=== PATIENT | male | born 1960 | race Caucasian/White ===

== ENCOUNTER 2023-04-16 17:16 | Emergency (ER) | payer BC, SELFPAY ==
--- NOTE | 2023-04-16 17:24 | DI.RAD.S_ITS ---
PROCEDURE: XR ANKLE RT MIN 3V INDICATIONS: inversion injury today TECHNIQUE: 3 views of the ankle were acquired. COMPARISON: None. FINDINGS: Bones: There is an avulsion fracture fragment seen along the inferior aspect of the lateral malleolus, with an acute appearance. Focal irregularity is seen involving the inferior aspect of the medial malleolus, with a chronic appearance. The talar dome demonstrates no margot abnormality. A moderate to prominent plantar calcaneal spur can be seen. Incidental note is made of an enthesophyte at the Achilles insertion. Soft tissues: Soft tissue swelling is seen, primarily laterally. IMPRESSION: Lateral malleolus avulsion fracture fragment, with focal lateral soft tissue swelling. Dictated by: Tomas Espinoza M.D. on 04/16/2023 at 16:52 Approved by: Tomas Espinoza M.D. on 04/16/2023 at 16:53
--- NOTE | 2023-04-16 17:25 | ED_ITS ---
HPI - General Adult General Chief complaint: Extremity Injury, Lower Stated complaint: Twisted rt ankle Time Seen by Provider: 04/16/23 17:18 History of Present Illness HPI narrative: 62-year-old male without chronic medical history presents with his in the chief complaint of right ankle pain. He states that he was out hiking and just before they got back to the parking lot he stepped awkwardly on an uneven piece of ground and inverted his right ankle and now has pain overlying the lateral part of his ankle. He states the pain is worse when he walks and improves with rest. He denies any numbness or tingling. He states he is had prior sprains before. He denies any knee or hip injury. Related Data Allergies Allergy/AdvReac Type Severity Reaction Status Date / Time No Known Drug Allergies Allergy Verified 04/16/23 17:28 Review of Systems Review of Systems Narrative: GENERAL: Denies chills, fatigue, malaise, fever, sweats. HEENT: Denies sinus pain, ear pain, sore throat, difficulty swallowing, dizziness. RESPIRATORY: Denies dyspnea, cough, wheezing, hemoptysis, sputum. CARDIOVASCULAR: Denies chest pain, palpitations, orthopnea, edema, GASTROINTESTINAL: Denies nausea, vomiting, abdominal pain, diarrhea, constipation, melena. : Denies dysuria, frequency, incontinence, hematuria, urinary retention. MUSCULOSKELETAL: See HPI SKIN: Denies rash, skin lesions, or other NEUROLOGIC: Denies weakness, headache, numbness, change in speech, confusion, seizures, incoordination. PSYCHIATRIC: No concerning psychosocial issues. 12 point review of systems is negative except for those stated above Exam Narrative Exam Narrative: GEN: AOx3 and in mild distress EYES: Pupils are equal, round, and reactive to light and accommodation. Extraoccular muscles are intact bilaterally. There is no subconjunctival h emorrhage or exudate. CHEST: Lungs are clear to auscultation bilaterally and free of wheezes, rales, or rhonchi. Heart rate is regular rhythm, there are no murmurs, clicks, rubs, or gallops. There is no chest wall tenderness. ABD: Abdomen is soft and nontender. There is no guarding or rebound. Bowel sounds are normal in all 4 quadrants. There is no mass or organomegaly. EXT: Full but painful range of motion of right ankle with some swelling over the lateral malleolus, no pain with squeeze test, no pain over medial malleolus or talus, no pain on palpation of foot, knee or hip. SKIN: Warm, pink, and dry. No erythema or rash Initial Vital Signs Initial Vital Signs: Vital Signs Temperature 98.7 F 04/16/23 17:28 Pulse Rate 82 04/16/23 17:28 Respiratory Rate 18 04/16/23 17:28 Blood Pressure 119/67 04/16/23 17:28 Pulse Oximetry 95 04/16/23 17:28 Oxygen Delivery Method Room Air 04/16/23 17:28 Course Orders Ordered: ED Orders 04/16/23 17:24 XR ankle RT min 3V Stat Vital Signs Vital signs: Vital Signs - 8 hr 04/16/23 17:28 Temperature 98.7 F Pulse Rate 82 Respiratory Rate 18 Blood Pressure 119/67 Pulse Oximetry 95 Oxygen Delivery Method Room Air Medical Decision Making MDM Narrative Medical decision making narrative: [62] year old patient presents with right ankle pain Multiple etiologies for patient's symptoms considered including, but not limited to: [Fracture versus dislocation versus sprain versus other] Prior Charts reviewed in our EMR Primary Historian: patient Imaging reviewed: X-ray notes small lateral malleolus avulsion fracture fragment Consultations: Discussed with on-call orthopedist (Dr. Santoro). Weightbearing as tolerated, no specific splinting, patient does state that he wears lace-up boots most of the time and this is appropriate. He is given instructions for close follow-up Patient's symptoms improved over duration of stay with above-stated therapies. Findings and discharge diagnosis discussed with patient/family followed by verbalization of understanding Return precautions discussed with patient/family whom verbalize understanding of diagnosis and plan Discharge Plan Departure Patient Disposition: Home Clinical Impression: Avulsion fracture Instructions: DI for Avulsion Fracture Activity Restrictions/Additional Instructions: *You have been diagnosed with [right ankle avulsion fracture. *What to do: *Please continue to take your regular medications as directed. [ ] New medication prescriptions sent to your pharmacy: [ ] [ ] New medication written as a paper prescription [x] Tylenol and occasional Motrin for pain *Please follow up with [Maude] of [facility] in 2-3 days, call for an appointment. Let them know you were seen in the Emergency Department and that we ask that you be seen in follow up. We will electronically transmit a record of today's note if your PCP is in our system *Return to Emergency Department if you should have any new, worsening or concerning symptoms, such as [worsening pain, significant swelling, cold extremities, numbness, tingling, weakness or other bothersome symptoms As we discussed no specific splint is needed though per our discussion lace-up boots would be helpful to help prevent any eversion or inversion injury. Referrals: Octavia Santoro MD [Physician] - Stand Alone Forms: Patient Portal/API
[2023-04-16 17:28] VITALS: BP 119/67; PULSE 82; RESP 18; TEMP 37.1; O2SAT 95; BMI 27.6
== END 2023-04-16 18:27 | disposition home or self-care (01) ==
LOC: ED 18:11
PROVIDERS: Emergency Provider Emergency Medicine
DX: S82.61XA Displaced fracture of lateral malleolus of right fibula, initial encounter for closed fracture (principal); X50.1XXA Overexertion from prolonged static or awkward postures, initial encounter
CPT/HCPCS: 73610; 99283